=== PATIENT | female | born 1970 | race Caucasian/White ===

== ENCOUNTER 2021-01-15 06:28 | Emergency (ER) | payer OTHER ==
[~2021-01-15] VITALS: Ht 167.6 cm; Wt 81.8 kg
[2021-01-15 06:36] VITALS: BP 132/96; Ht 167.6 cm; Wt 81.8 kg
== END 2021-01-15 07:43 | disposition home or self-care (01) ==
LOC: D.ER 06:28
DX: G43.909 Migraine, unspecified, not intractable, without status migrainosus (principal)